=== PATIENT | male | born 1950 | race Caucasian/White ===

== ENCOUNTER → 2018-01-24 09:39 | Outpatient (CLI) | payer MEDICARE, BC | END | disposition home or self-care (01) | LOC: D.RT 09:39 | DX: R06.02 Shortness of breath (principal) ==

== ENCOUNTER → 2018-07-21 15:07 | Outpatient (CLI) | payer MEDICARE, BC | END | disposition home or self-care (01) | LOC: D.US 15:07 | DX: M79.605 Pain in left leg (principal) ==

== ENCOUNTER → 2019-02-20 16:00 | Outpatient (CLI) | payer MEDICARE, BC ==
[2019-02-20 16:31] LABS: BASOPHILS 0.6 % (0-2); EOSINOPHILS 1.7 % (0-7); HEMATOCRIT 49.2 % (42.0-54.0); HEMOGLOBIN 17.4 g/dL (13.5-17.5); IMMATURE GRANULOCYTES 0.2 % (0-5); LYMPHOCYTES 38.6 % (15-50); MCH 33.3 pg (26.0-34.0); MCHC 35.4 g/dL (31.0-37.0); MCV 94.3 fL (80.0-100.0); MEAN PLATELET VOLUME 10.3 fL (7.4-10.4); MONOCYTES 7.1 % (2-11); NEUTROPHILS 51.8 % (40-80); PLATELET COUNT 185 10x3/uL (130-400); RBC 5.22 10x6/uL (4.20-6.10); WBC 4.6 10x3/uL (4.8-10.8)
== END | disposition home or self-care (01) ==
LOC: D.LABREF 16:00
PROVIDERS: ATTEND Legal Medicine
DX: E83.119 Hemochromatosis, unspecified (principal)

== ENCOUNTER → 2019-04-20 14:28 | Outpatient (CLI) | payer MEDICARE, BC ==
[2019-04-20 15:07] LABS: BASOPHILS 0.5 % (0-2); HEMATOCRIT 47.6 % (42.0-54.0); HEMOGLOBIN 17.2 g/dL (13.5-17.5); IMMATURE GRANULOCYTES 0.5 % (0-5); LYMPHOCYTES 33.2 % (15-50); MCH 33.2 pg (26.0-34.0); MCHC 36.1 g/dL (31.0-37.0); MCV 91.9 fL (80.0-100.0); MEAN PLATELET VOLUME 10.5 fL (7.4-10.4); MONOCYTES 8.2 % (2-11); NEUTROPHILS 56.6 % (40-80); PLATELET COUNT 177 10x3/uL (130-400); RBC 5.18 10x6/uL (4.20-6.10); RDW 13.8 % (11.5-14.5); WBC 5.9 10x3/uL (4.8-10.8)
== END | disposition home or self-care (01) ==
LOC: D.LABREF 14:28
PROVIDERS: ATTEND Legal Medicine
DX: E83.119 Hemochromatosis, unspecified (principal)

== ENCOUNTER → 2019-06-15 11:52 | Outpatient (CLI) | payer MEDICARE, BC ==
[2019-06-15 12:21] LABS: BASOPHILS 0.4 % (0-2); EOSINOPHILS 2.7 % (0-7); HEMATOCRIT 49.1 % (42.0-54.0); HEMOGLOBIN 17.8 g/dL (13.5-17.5); IMMATURE GRANULOCYTES 0.2 % (0-5); LYMPHOCYTES 43.8 % (15-50); MCH 33.8 pg (26.0-34.0); MCHC 36.3 g/dL (31.0-37.0); MCV 93.2 fL (80.0-100.0); MEAN PLATELET VOLUME 10.6 fL (7.4-10.4); MONOCYTES 10.8 % (2-11); NEUTROPHILS 42.1 % (40-80); PLATELET COUNT 181 10x3/uL (130-400); RBC 5.27 10x6/uL (4.20-6.10); RDW 13.7 % (11.5-14.5); WBC 4.5 10x3/uL (4.8-10.8)
== END | disposition home or self-care (01) ==
LOC: D.LABREF 11:52
PROVIDERS: ATTEND Legal Medicine
DX: E78.5 Hyperlipidemia, unspecified (principal)